=== PATIENT | male | born 1985 | race Caucasian/White ===

== ENCOUNTER 2022-02-26 06:20 | Emergency (ER) | payer BC, OTHER ==
[2022-02-26] MEDS ORDERED: Lidocaine 2% 20 ml MDV ONE (07:39)
[2022-02-26] MEDS ORDERED: Boostrix 0.5 ML (Tdap) VIAL ONE (08:22)
== END 2022-02-26 08:38 | disposition home or self-care (01) ==
LOC: BURERS 06:20
DX: S61.210A Laceration without foreign body of right index finger without damage to nail, initial encounter (principal); W26.8XXA Contact with other sharp object(s), not elsewhere classified, initial encounter; Z23 Encounter for immunization; Y99.0 Civilian activity done for income or pay
CPT/HCPCS: 12001; 90471; 90715